=== PATIENT | female | born 1960 | race Caucasian/White ===

== ENCOUNTER 2018-02-04 11:54 | Observation (INO) | payer MEDICARE, OTHER ==
[2018-02-04] MEDS ORDERED: NITROGLYCERIN SL TABS 0.4 MG TAB SUBLINGUAL STA ×3 (12:12)
[2018-02-04] MEDS ORDERED: ASPIRIN 81 MG PO STA (12:12)
--- NOTE | 2018-02-04 12:15 | ED ---
General Adult HPI - General Chief complaint: Chest Pain Stated complaint: Chest pain Time Seen by Provider: 02/04/18 12:06 Source: patient, RN notes reviewed Mode of arrival: wheelchair Limitations: no limitations - History of Present Illness Initial comments: Patient is a pleasant 57-year-old female presenting to the emergency Department with complaints of chest discomfort. Onset was around 3 AM. Discomfort feels like pressure. Patient does have some associated dyspnea. Symptoms seem somewhat improved with being outside. Patient has been exposed to tobacco smoke over the past month. No associated nausea or diaphoresis. No history of similar symptoms previously. Patient did travel to the [facility] one month ago. No symptoms over the past month. No leg pain or leg swelling. No cough or fever. - Related Data Home Medications Medication Instructions Recorded Confirmed Estradiol [Estradiol 0.1 MG Patch] 1 patch TRANSDERM MO 02/04/18 02/04/18 Allergies Allergy/AdvReac Type Severity Reaction Status Date / Time aspirin AdvReac Unknown Verified 02/04/18 12:18 Penicillins AdvReac Rash/Hives Verified 02/04/18 12:18 Review of Systems ROS Statement: Those systems with pertinent positive or pertinent negative responses have been documented in the HPI. ROS Other: All systems not noted in ROS Statement are negative. Constitutional: Denies: fever Eyes: Denies: eye pain ENT: Denies: ear pain Respiratory: Reports: dyspnea. Denies: cough Cardiovascular: Reports: chest pain Endocrine: Denies: fatigue Gastrointestinal: Denies: abdominal pain Genitourinary: Denies: dysuria Musculoskeletal: Denies: back pain Skin: Denies: rash Neurological: Denies: weakness Past Medical History Past Medical History: No Reported History History of Any Multi-Drug Resistant Organisms: None Reported Past Surgical History: Hysterectomy Additional Past Surgical History / Comment(s): breast augmentation Past Psychological History: No Psychological Hx Reported Smoking Status: Never smoker Past Alcohol Use History: Occasional Past Drug Use History: None Reported General Exam Limitations: no limitations General appearance: alert, in no apparent distress Head exam: Present: atraumatic Eye exam: Present: normal appearance, PERRL ENT exam: Present: normal oropharynx Neck exam: Present: normal inspection Respiratory exam: Present: normal lung sounds bilaterally. Absent: chest wall tenderness Cardiovascular Exam: Present: regular rate, normal rhythm Expanded Peripheral pulses: 2+: Radial (R), Radial (L), Posterior Tibialis (R), Posterior Tibialis (L) GI/Abdominal exam: Present: soft. Absent: tenderness Extremities exam: Present: normal inspection. Absent: pedal edema, calf tenderness Neurological exam: Present: alert Psychiatric exam: Present: normal affect, normal mood Skin exam: Present: normal color Course Vital Signs 02/04/18 02/04/18 02/04/18 12:00 12:33 12:34 Temperature 98.3 F Pulse Rate 66 65 Pulse Rate [ 65 [place] ] Respiratory 18 18 Rate Blood Pressure 130/65 121/72 O2 Sat by Pulse 100 97 Oximetry EKG Findings - EKG Comments: EKG Findings:: Normal sinus rhythm 67. MS 168. QRS 78. QT 388. QTC are 9. Left axis. Normal QRS. No acute ST change. Medical Decision Making - Medical Decision Making Patient reevaluated and still having some symptoms however not as bad as previously. Patient states possibly mild improvement with nitroglycerin. Patient updated on results and plan. Case discussed in detail with Dr. ovalle, who will admit for hospital call. - Lab Data Result diagrams: 02/04/18 12:00 02/04/18 12:00 Lab Results 02/04/18 02/04/18 02/04/18 Range/Units 12:00 12:00 12:00 WBC 4.2 (3.8-10.6) k/uL RBC 4.30 (3.80-5.40) m/uL Hgb 13.3 (11.4-16.0) gm/dL Hct 40.7 (34.0-46.0) % MCV 94.6 (80.0-100.0) fL MCH 30.9 (25.0-35.0) pg MCHC 32.7 (31.0-37.0) g/dL RDW 12.5 (11.5-15.5) % Plt Count 168 (150-450) k/uL Neutrophils % 53 % Lymphocytes % 33 % Monocytes % 8 % Eosinophils % 2 % Basophils % 1 % Neutrophils # 2.2 (1.3-7.7) k/uL Lymphocytes # 1.4 (1.0-4.8) k/uL Monocytes # 0.3 (0-1.0) k/uL Eosinophils # 0.1 (0-0.7) k/uL Basophils # 0.0 (0-0.2) k/uL PT (9.0-12.0) sec INR (<1.2) APTT (22.0-30.0) sec D-Dimer (<0.60) mg/L FEU Sodium 142 (137-145) mmol/L Potassium 4.1 (3.5-5.1) mmol/L Chloride 107 (98-107) mmol/L Carbon Dioxide 29 (22-30) mmol/L Anion Gap 6 mmol/L BUN 15 (7-17) mg/dL Creatinine 0.66 (0.52-1.04) mg/dL Est GFR (CKD-EPI)AfAm >90 (>60 ml/min/1.73 sqM) Est GFR (CKD-EPI)NonAf >90 (>60 ml/min/1.73 sqM) Glucose 85 (74-99) mg/dL Calcium 9.5 (8.4-10.2) mg/dL Magnesium 1.8 (1.6-2.3) mg/dL Total Bilirubin 0.3 (0.2-1.3) mg/dL AST 31 (14-36) U/L ALT 21 (9-52) U/L Alkaline Phosphatase 52 (38-126) U/L Total Creatine Kinase 49 (30-135) U/L CK-MB (CK-2) 0.7 (0.0-2.4) ng/mL CK-MB (CK-2) Rel Index 1.4 Troponin I <0.012 (0.000-0.034) ng/mL Total Protein 6.8 (6.3-8.2) g/dL Albumin 3.9 (3.5-5.0) g/dL 02/04/18 Range/Units 12:00 WBC (3.8-10.6) k/uL RBC (3.80-5.40) m/uL Hgb (11.4-16.0) gm/dL Hct (34.0-46.0) % MCV (80.0-100.0) fL MCH (25.0-35.0) pg MCHC (31.0-37.0) g/dL RDW (11.5-15.5) % Plt Count (150-450) k/uL Neutrophils % % Lymphocytes % % Monocytes % % Eosinophils % % Basophils % % Neutrophils # (1.3-7.7) k/uL Lymphocytes # (1.0-4.8) k/uL Monocytes # (0-1.0) k/uL Eosinophils # (0-0.7) k/uL Basophils # (0-0.2) k/uL PT 10.1 (9.0-12.0) sec INR 1.0 (<1.2) APTT 23.6 (22.0-30.0) sec D-Dimer 0.47 (<0.60) mg/L FEU Sodium (137-145) mmol/L Potassium (3.5-5.1) mmol/L Chloride (98-107) mmol/L Carbon Dioxide (22-30) mmol/L Anion Gap mmol/L BUN (7-17) mg/dL Creatinine (0.52-1.04) mg/dL Est GFR (CKD-EPI)AfAm (>60 ml/min/1.73 sqM) Est GFR (CKD-EPI)NonAf (>60 ml/min/1.73 sqM) Glucose (74-99) mg/dL Calcium (8.4-10.2) mg/dL Magnesium (1.6-2.3) mg/dL Total Bilirubin (0.2-1.3) mg/dL AST (14-36) U/L ALT (9-52) U/L Alkaline Phosphatase (38-126) U/L Total Creatine Kinase (30-135) U/L CK-MB (CK-2) (0.0-2.4) ng/mL CK-MB (CK-2) Rel Index Troponin I (0.000-0.034) ng/mL Total Protein (6.3-8.2) g/dL Albumin (3.5-5.0) g/dL - Radiology Data Radiology results: image reviewed (Chest x-ray shows no acute process) Disposition Clinical Impression: Chest pain Disposition: ADMITTED IP TO THIS [facility] Is patient prescribed a controlled substance at d/c from ED?: No Referrals: Nonstaff,Physician [REFERRING] - 1-2 days Decision Time: 13:50
[2018-02-04 12:54] LABS: Basophils % (A) 1 %; Eosinophils # (A) 0.1 k/uL (0-0.7); Eosinophils % (A) 2 %; HCT 40.7 % (34.0-46.0); HGB 13.3 gm/dL (11.4-16.0); Lymphocytes # (A) 1.4 k/uL (1.0-4.8); Lymphocytes % (A) 33 %; MCH 30.9 pg (25.0-35.0); MCHC 32.7 g/dL (31.0-37.0); MCV 94.6 fL (80.0-100.0); Mean Platelet Volume 8.2; Monocytes # (A) 0.3 k/uL (0-1.0); Monocytes % (A) 8 %; Neutrophils # (A) 2.2 k/uL (1.3-7.7); Neutrophils % (A) 53 %; Platelet Count 168 k/uL (150-450); RDW 12.5 % (11.5-15.5); WBC 4.2 k/uL (3.8-10.6)
--- NOTE | 2018-02-04 12:59 | XR ---
EXAMINATION TYPE: XR chest 2V DATE OF EXAM: 02/04/2018 COMPARISON: NONE HISTORY: Shortness of breath TECHNIQUE: Frontal and lateral views of the chest are obtained. FINDINGS: Scattered senescent parenchymal changes noted. Hyperinflation compatible with COPD. No evidence for infiltrate. No evidence for atelectasis. Heart size is stable. Mediastinal structures are stable and grossly unremarkable. No evidence for hilar prominence. Reverse S-shaped scoliotic curvature. IMPRESSION: 1. No evidence for acute pulmonary disease.
[2018-02-04 13:06] LABS: ALT 21 U/L (9-52); AST 31 U/L (14-36); Albumin 3.9 g/dL (3.5-5.0); Alkaline Phosphatase 52 U/L (38-126); Anion Gap 6 mmol/L; Blood Urea Nitrogen 15 mg/dL (7-17); Calcium 9.5 mg/dL (8.4-10.2); Carbon Dioxide 29 mmol/L (22-30); Chloride 107 mmol/L (98-107); Glucose 85 mg/dL (74-99); Magnesium 1.8 mg/dL (1.6-2.3); Potassium 4.1 mmol/L (3.5-5.1); Sodium 142 mmol/L (137-145); Total Bilirubin 0.3 mg/dL (0.2-1.3); Total Protein 6.8 g/dL (6.3-8.2)
[2018-02-04 13:19] LABS: D-Dimer 0.47 mg/L FEU (<0.60); Partial Thromboplastin Time 23.6 sec (22.0-30.0); Prothrombin Time 10.1 sec (9.0-12.0)
[2018-02-04 13:23] LABS: Creatine Kinase 49 U/L (30-135)
[2018-02-04 13:35] LABS: Creatine Kinase MB 0.7 ng/mL (0.0-2.4); Troponin I <0.012 ng/mL (0.000-0.034)
[2018-02-04] MEDS ORDERED: NITROGLYCERIN SL TABS 0.4 MG TAB SUBLINGUAL PRN (13:50)
[2018-02-04] MEDS ORDERED: NITROGLYCERIN OINT 1 INCH/GM PACKET TOPICAL SCH (14:15)
[2018-02-04] MEDS ORDERED: ASPIRIN-ACET-CAFF 250-250-65MG 1 EACH TAB PO STA (16:43)
[2018-02-04] MEDS ORDERED: HYDROcodone/APAP 5-325MG 1 EACH TAB PO PRN (16:57)
[2018-02-04] MEDS ORDERED: NALOXONE 0.4 MG/ML 1 ML VIAL IV PRN (16:57)
[2018-02-04] MEDS ORDERED: ACETAMINOPHEN TAB 325 MG TAB PO PRN (16:57)
[2018-02-04] MEDS ORDERED: ASPIRIN-ACET-CAFF 250-250-65MG 1 EACH TAB PO PRN (16:59)
--- NOTE | 2018-02-04 17:00 | P.HPIM ---
History of Present Illness H&P Date: 02/04/18 Chief Complaint: Chest pain 57-year-old female with no past medical history presents the ED for chest pain. Patient reports waking up at 3 AM with chest pain. Chest pain is left-sided and constant. Pain is 6 out of 10 in severity. Pain is pressure-like in nature. Patient also reports numbness in her left upper extremity. There is no radiation of pain. There is no alleviating factors. There are no aggravating factors. Pain does not increase with movement. Pain does not increase with deep inspiration. Patient was a previous episode of pain when she had a hysterectomy after large amount of blood loss. Patient states that her chest pain was associated with shortness of breath and chest tightness. Patient reports a long family history of coronary artery disease. Her brother and mother had NM in their 30s. She denies any lower extremity edema, nausea, vomiting, fever, cough, palpitations, changes in urination or bowel habits. No changes in appetite or weight. She does complain of headache, bitemporal, related to her migraines. In the ED, CBC and CMP were unremarkable. Troponin was less than 0.012. EKG showed normal sinus rhythm. Chest x-ray was negative. Patient is admitted for chest pain, rule out acute coronary syndrome. Cardiology on consult. Review of Systems All systems: negative Past Medical History Past Medical History: No Reported History Additional Past Medical History / Comment(s): Migraines History of Any Multi-Drug Resistant Organisms: None Reported Past Surgical History: Hysterectomy Additional Past Surgical History / Comment(s): breast augmentation Past Anesthesia/Blood Transfusion Reactions: No Reported Reaction Smoking Status: Never smoker - Past Family History Father Additional Family Medical History / Comment(s): Father from a brain hemorrhage at the age of 50 yrs. He was a smoker and had emphysema. Mother Family Medical History: Coronary Artery Disease (CAD), Diabetes Mellitus, Myocardial Infarction (NM) Additional Family Medical History / Comment(s): Mother is 79yrs old. She has had MIs with the first Mi occurring in her mid to late 30s. Brother(s) Family Medical History: Myocardial Infarction (NM) Additional Family Medical History / Comment(s): Brother is . He had multiple MIs with the first one occuring when he was in his 30s. Sister(s) Family Medical History: Coronary Artery Disease (CAD), Diabetes Mellitus Medications and Allergies Home Medications Medication Instructions Recorded Confirmed Type Estradiol [Estradiol 0.1 MG Patch] 1 patch TRANSDERM MO 02/04/18 02/04/18 History Allergies Allergy/AdvReac Type Severity Reaction Status Date / Time aspirin AdvReac Unknown Verified 02/04/18 12:18 Penicillins AdvReac Rash/Hives Verified 02/04/18 12:18 Physical Exam Vitals: Vital Signs Temp Pulse Pulse Resp BP Pulse Ox 02/04/18 16:00 56 L 15 124/73 98 02/04/18 15:00 64 88 H 138/76 100 02/04/18 14:00 57 L 16 122/71 100 02/04/18 13:00 60 16 109/69 100 02/04/18 12:34 65 02/04/18 12:33 65 18 121/72 97 02/04/18 12:18 99 02/04/18 12:00 98.3 F 66 18 130/65 100 Intake and Output 02/04/18 02/04/18 02/04/18 06:59 14:59 22:59 Other: Weight 72.121 kg General: [non toxic], [no distress], [appears at stated age] Derm: [warm], [dry] Head: [atraumatic], [normocephalic], [symmetric] Eyes: [EOMI], [no lid lag], [anicteric sclera] Mouth: [no lip lesion], [mucus membranes moist] Cardiovascular: [S1S2 reg], [no murmur], [positive DP pulse bilateral], [ tenderness to palpation left sternum.] Lungs: [CTA bilateral], [no rhonchi, no rales] , [no accessory muscle use] Abdominal: [soft], [ nontender to palpation], [no guarding], [no appreciable organomegaly] Ext: [no gross muscle atrophy], [no edema], [no contractures] Neuro: [ CN II-XI grossly intact], [no focal neuro deficits] Psych: [Alert], [oriented], [appropriate affect] Results CBC & Chem 7: 02/04/18 12:00 02/04/18 12:00 Thrombosis Risk Factor Assmnt - Choose All That Apply Any of the Below Risk Factors Present?: Yes Each Factor Represents 1 point: Age 41-60 years Other Risk Factors: No Other congenital or acquired thrombophilia - If yes, enter type in comment: No Thrombosis Risk Factor Assessment Total Risk Factor Score: 1 Thrombosis Risk Factor Assessment Level: Low Risk Assessment and Plan Assessment: Assessment and Plan 1. Chest pain: Appears to be musculoskeletal. Concern for ACS due to extensive family history. Chest x-ray is negative. Troponin is less than 0.12, EKG is normal sinus rhythm. Pain management with Tylenol and [place]. Continue aspirin 325 mg by mouth daily. Telemetry monitoring. I will order a lipid panel. Cardiac diet. Trend 2 more troponins/EKG to rule out ACS. Will order an echocardiogram. We will follow cardiology recommendations. 2. Migraines: Stable. Headache likely induced by Nitrostat. Excedrin 1 tab PO Q6H PRN. 3. DVT/GI Prophylaxis: Low risk for DVT, early mobilization.
[2018-02-04 18:31] LABS: Creatine Kinase 41 U/L (30-135)
[2018-02-04 18:44] LABS: Creatine Kinase MB 0.6 ng/mL (0.0-2.4); Troponin I <0.012 ng/mL (0.000-0.034)
[2018-02-05 00:35] LABS: Creatine Kinase 35 U/L (30-135)
[2018-02-05 00:36] LABS: Cholesterol 157 mg/dL (<200); HDL Cholesterol 48 mg/dL (40-60); LDL Cholesterol,Calculated 86 mg/dL (0-99); Triglycerides 114 mg/dL (<150)
[2018-02-05 00:48] LABS: Creatine Kinase MB 0.5 ng/mL (0.0-2.4); Troponin I <0.012 ng/mL (0.000-0.034)
--- NOTE | 2018-02-05 08:47 | CONS ---
CONSULTATION Mrs Morales is a 57-year-old female who was visiting from [place] and presented with symptoms of chest discomfort. She woke up yesterday. She had this discomfort in the chest and felt dyspneic. She went out and walking and her discomfort was better. Some of the discomfort was worse with pressing on the chest. It lasted for about 12 hours before it resolved completely. The discomfort had no radiation and no other associated symptoms. She is usually active physically. Exercises on a regular basis without any discomfort. She has no history of dyspnea on exertion. No PND. No orthopnea. No peripheral edema. No dizziness, palpitation, or syncope on a regular basis. She has no prior documented history of cardiac disease and no cardiac workup. Her coronary risk factors are negative for hypertension, hyperlipidemia, or diabetes. She is a nonsmoker. There is a family history of coronary disease in her mother, brother and sister at young age. Her medication at home are Estradiol. REVIEW OF SYSTEMS: RESPIRATORY system: No recent wheezing. No cough. No history of documented obstructive lung disease. GI system: No recent GI bleed. No peptic ulcer disease. system: No dysuria or hematuria. Nervous system: No stroke or seizure. PHYSICAL EXAMINATION: A 57-year-old female, alert, oriented, in no apparent distress. Blood pressure 124/70 with a heart in the 60s. HEAD: Normocephalic. Eyes sclerae anicteric. Neck good upstroke. No bruit. No jugular venous distention. Lungs clear to auscultation. HEART: Regular rhythm S1, S2. No S3. No S4. No murmur or rub. ABDOMEN: Soft, nontender. Positive bowel sounds. No megaly. EXTREMITIES: No edema. Intact distal pulses. LAB DATA: BUN and creatinine 15 and 0.6. Potassium 4.1. Troponin less than 0.012. Cholesterol of 157 with an LDL of 86 and a hemoglobin of 13.3. EKG sinus mechanism with a normal axis and intervals. No acute changes. Chest x-ray is unremarkable. IMPRESSION: 1. Chest discomfort atypical for ischemic heart disease probably noncardiac. Appears to have a musculoskeletal pattern to it. 2. Family history of premature coronary disease. RECOMMENDATION: From the cardiac standpoint, I will increase her level activity. An echocardiogram with Doppler will be obtained. If she is stable, I would expect she should be able to be discharged home today and I would recommend to obtain a stress echocardiogram as an outpatient. Thank you for this consult. We will follow with you. MMODL / IJN: [id number] /
[2018-02-05 08:48] VITALS: PULSE 72; RESP 16
[2018-02-05] MEDS ORDERED: ASPIRIN 325 MG TAB PO SCH (09:00)
--- NOTE | 2018-02-05 09:43 | ECHOF ---
Referral Reason:Chest pain MEASUREMENTS -------- HEIGHT: 170.2 cm WEIGHT: 72.1 kg BP: RVIDd: 2.2 cm (< 3.3) IVSd: 0.9 cm (0.6 - 1.1) LVIDd: 4.5 cm (3.9 - 5.3) LVPWd: 1.0 cm (0.6 - 1.1) IVSs: 1.5 cm LVIDs: 2.9 cm LVPWs: 1.2 cm Ao Diam: 3.2 cm (2.0 - 3.7) AV Cusp: 2.5 cm (1.5 - 2.6) LA Diam: 2.5 cm (2.7 - 3.8) MV EXCURSION: 17.614 mm (> 18.000) MV EF SLOPE: 59 mm/s (70 - 150) EPSS: 0.7 cm MV E Prashant: 0.78 m/s MV DecT: 206 ms MV A Prashant: 0.68 m/s MV E/A Ratio: 1.15 RAP: 5.00 mmHg RVSP: 12.60 mmHg FINDINGS -------- Sinus rhythm. This was a technically good study. The left ventricular size is normal. Left ventricular wall thickness is normal. Overall left vent ricular systolic function is normal with, an EF between 55 - 60 %. The right ventricle is normal in size. The left atrium is normal in size. The right atrium is normal in size. Aortic valve is trileaflet and is mildly thickened. The mitral valve leaflets are mildly thickened. There is trace mitral regurgitation. There is min imal mitral valve prolapse. Mild tricuspid regurgitation present. The right ventricular systolic pressure, as measured by Doppl er, is 12.60mmHg. Pulmonic valve appears structurally normal. The aortic root size is normal. The pericardium is normal. CONCLUSIONS -------- 1. Sinus rhythm. 2. This was a technically good study. 3. The left ventricular size is normal. 4. Left ventricular wall thickness is normal. 5. Overall left ventricular systolic function is normal with, an EF between 55 - 60 %. 6. The right ventricle is normal in size. 7. The left atrium is normal in size. 8. The right atrium is normal in size. 9. Aortic valve is trileaflet and is mildly thickened. 10. The mitral valve leaflets are mildly thickened. 11. There is trace mitral regurgitation. 12. There is minimal mitral valve prolapse. 13. Mild tricuspid regurgitation present. 14. The right ventricular systolic pressure, as measured by Doppler, is 12.60mmHg. 15. Pulmonic valve appears structurally normal. 16. The aortic root size is normal. 17. The pericardium is normal. ENVIRONMENTAL [employer]CI[employer]ANNER: Marisela Teixeira RDCS
--- NOTE | 2018-02-05 11:21 | P.DS ---
Providers Date of admission: 02/04/18 13:50 Expected date of discharge: 02/05/18 Attending physician: Brad Sorenson MD Consults: 02/04/18 13:50 Consult Physician Urgent Consulting Provider: Ky Kenyon Consult Reason/Comments: cp Do you want consulting provider notified?: Yes Primary care physician: Stated None - Discharge Diagnosis(es) (1) Migraine Current Visit: Yes Status: Acute (2) Chest pain Current Visit: Yes Status: Acute Hospital Course: 57-year-old female with no past medical history presents the ED for chest pain. Patient reports waking up at 3 AM with chest pain. Chest pain is left-sided and constant. Pain is 6 out of 10 in severity. Pain is pressure-like in nature. Patient also reports numbness in her left upper extremity. There is no radiation of pain. There is no alleviating factors. There are no aggravating factors. Pain does not increase with movement. Pain does not increase with deep inspiration. Patient was a previous episode of pain when she had a hysterectomy after large amount of blood loss. Patient states that her chest pain was associated with shortness of breath and chest tightness. Patient reports a long family history of coronary artery disease. Her brother and mother had NV in their 30s. She denies any lower extremity edema, nausea, vomiting, fever, cough, palpitations, changes in urination or bowel habits. No changes in appetite or weight. She does complain of headache, bitemporal, related to her migraines. In the ED, CBC and CMP were unremarkable. Troponin was less than 0.012. EKG showed normal sinus rhythm. Chest x-ray was negative. With regard to her chest pain, this is thought to be secondary to musculoskeletal pain. There was a concern for ACS due to her extensive family history. Troponin was less than 0.0123 with EKG showing normal sinus rhythm. Echocardiogram was ordered and showed normal ejection fraction of 55-60% with no wall motion abnormalities. She was evaluated for cardiology, decision made to obtain a stress echocardiogram as an outpatient. Pertinent Studies: Echocardiogram Patient Condition at Discharge: Stable Plan - Discharge Summary Discharge Rx Participant: No New Discharge Prescriptions: New [id number] [Excedrin] 1 each PO Q6HR PRN tab PRN Reason: Headache Continue Estradiol [Estradiol 0.1 MG Patch] 1 patch TRANSDERM MO Discharge Medication List Estradiol [Estradiol 0.1 MG Patch] 1 patch TRANSDERM MO 02/04/18 [History] [id number] [id number] [Excedrin] 1 each PO Q6HR PRN tab 02/05/18 [Rx] Follow up Appointment(s)/Referral(s): Bentley Woody MD [STAFF PHYSICIAN] - 4 Weeks Nonstaff,Physician [REFERRING] - 1-2 days Activity/Diet/Wound Care/Special Instructions: Diet: HEART healthy Please follow-up with your primary care provider within 1-2 days of discharge. Please follow-up with your water commissioner Dr. Woody on with the appointment given to you. Note to PCP: Please obtain a stress echocardiogram. Please take all medications as advised. Please come to the ED or call 911 for worsening chest pain, shortness of breath , palpitations. Discharge Disposition: HOME SELF-CARE
[2018-02-05 12:14] VITALS: BP 103/66; TEMP 98
[2018-02-07] MEDS ORDERED: ESTRADIOL TRANSDERM SCH (09:00)
== END 2018-02-05 12:59 | disposition home or self-care (01) ==
LOC: EC 11:54 → 3SCARD 13:50 → 1SOBS 18:05
PROVIDERS: ADMIT Family Medicine; ATTEND Family Medicine
DX: R07.89 Other chest pain (principal); G43.909 Migraine, unspecified, not intractable, without status migrainosus; F41.9 Anxiety disorder, unspecified; Z77.22 Contact with and (suspected) exposure to environmental tobacco smoke (acute) (chronic); Z79.890 Hormone replacement therapy; Z79.899 Other long term (current) drug therapy; Z88.6 Allergy status to analgesic agent; Z88.0 Allergy status to penicillin; Z90.710 Acquired absence of both cervix and uterus; Z98.82 Breast implant status; Z82.49 Family history of ischemic heart disease and other diseases of the circulatory system; Z83.3 Family history of diabetes mellitus; Z82.5 Family history of asthma and other chronic lower respiratory diseases
CPT/HCPCS: 99285; 36415; 93005; 93306; 85379; 80061; 80053; 82550 ×2; 82553 ×2; 83735; 84484 ×2; 85025; 85610; 85730; 71046; G0378 ×3

== ENCOUNTER 2018-06-01 23:18 | Emergency (ER) | payer MEDICARE, OTHER ==
[2018-06-01 23:25] VITALS: TEMP 97.9
[2018-06-02] MEDS ORDERED: Acetaminophen-Codeine 300-30mg TAB PO STA (00:21)
--- NOTE | 2018-06-02 01:51 | XR ---
EXAM: XR Left Hand Complete, 3 or More Views CLINICAL HISTORY: injury TECHNIQUE: Frontal, lateral and oblique views of the left hand. COMPARISON: No relevant prior studies available. FINDINGS: Bones/joints: Acute nondisplaced fracture of the fifth metacarpal. Soft tissues: Soft tissue edema overlying the fifth metacarpal. No radiopaque foreign body. IMPRESSION: Acute fracture of the fifth metacarpal with overlying soft tissue edema.
--- NOTE | 2018-06-02 02:07 | ED ---
Upper Extremity HPI - General Chief Complaint: Extremity Injury, Upper Stated Complaint: L Hand Injury Time Seen by Provider: 06/01/18 23:43 Source: patient Mode of arrival: ambulatory Limitations: no limitations - History of Present Illness Initial Comments: This patient's 57-year-old woman who complains of left hand injury. She states that she had pushed a door which "snapped back" striking her left hand. She states felt a pop believes that something may have broken. She denies weakness or numbness of the hand or fingers. No previous surgery or injury to that hand. MD Complaint: Injury to:: left, hand -: hour(s) Other Extremity Injury: Hand: Left Handedness: right Place: home Improves With: immobilization Worsens With: movement of extremity Context: direct blow Associated Symptoms: heard/felt popping sensat - Related Data Home Medications Medication Instructions Recorded Confirmed Multivitamins, Thera [Multivitamin 1 tab PO DAILY 06/01/18 06/01/18 (formulary)] Previous Rx's Medication Instructions Recorded Acetaminophen-Codeine 300-30mg 1 tab PO Q4H PRN #20 tablet 06/02/18 [Tylenol w/codeine #3] Ibuprofen [Motrin] 600 mg PO Q8HR PRN #20 tab 06/02/18 Allergies Allergy/AdvReac Type Severity Reaction Status Date / Time aspirin AdvReac Unknown Verified 06/01/18 23:36 Penicillins AdvReac Rash/Hives Verified 06/01/18 23:36 Review of Systems ROS Statement: Those systems with pertinent positive or pertinent negative responses have been documented in the HPI. ROS Other: All systems not noted in ROS Statement are negative. Musculoskeletal: Reports: as per HPI, joint swelling, arthralgia Skin: Denies: lesions Neurological: Denies: weakness, numbness, paresthesias Hematological/Lymphatic: Denies: easy bleeding Past Medical History Past Medical History: No Reported History Additional Past Medical History / Comment(s): Migraines History of Any Multi-Drug Resistant Organisms: None Reported Past Surgical History: Hysterectomy Additional Past Surgical History / Comment(s): breast augmentation Past Anesthesia/Blood Transfusion Reactions: No Reported Reaction Past Psychological History: No Psychological Hx Reported Smoking Status: Never smoker Past Alcohol Use History: Occasional Past Drug Use History: None Reported - Past Family History Father Additional Family Medical History / Comment(s): Father from a brain hemorrhage at the age of 50 yrs. He was a smoker and had emphysema. Mother Family Medical History: Coronary Artery Disease (CAD), Diabetes Mellitus, Myocardial Infarction (DC) Additional Family Medical History / Comment(s): Mother is 79yrs old. She has had MIs with the first Mi occurring in her mid to late 30s. Brother(s) Family Medical History: Myocardial Infarction (DC) Additional Family Medical History / Comment(s): Brother is . He had multiple MIs with the first one occuring when he was in his 30s. Sister(s) Family Medical History: Coronary Artery Disease (CAD), Diabetes Mellitus General Exam Limitations: no limitations General appearance: alert, in no apparent distress Cardiovascular Exam: Present: other (. Pulses normal in strength. There is good capillary refill throughout the hand.) Extremities exam: Present: tenderness Left Elbow exam: Present: normal inspection, full ROM. Absent: tenderness Forearm Wrist exam: Present: normal inspection, full ROM. Absent: tenderness Hand Wrist exam: Present: tenderness, swelling, ecchymosis, other (There is ecchymosis and swelling over the fourth and fifth metacarpals of the left hand. No obvious deformity but there is tenderness. Vascular and sensory motor function normal) Neurosensory exam: Present: radial nerve intact, ulnar nerve intact, median nerve intact Vascular: Present: normal capillary refill. Absent: vascular compromise Neurological exam: Absent: motor sensory deficit Skin exam: Present: warm, dry, intact, normal color. Absent: rash Course Vital Signs 06/01/18 06/02/18 23:22 03:25 Temperature 97.9 F Pulse Rate 75 80 Respiratory 18 16 Rate Blood Pressure 111/66 117/61 O2 Sat by Pulse 99 Oximetry Medical Decision Making - Medical Decision Making Patient's 57-year-old woman with fifth metacarpal fracture. There is decent anatomical alignment. The patient's did request that a cast be placed immediately tonight. I call orthopedic surgery to discuss this and they feel that that is an appropriate treatment given risk of increased swelling leading to Otherwise of the circulation. Discussed this with patient and did provide splint. Follow-up instructions, as well as return parameters. Disposition Clinical Impression: Metacarpal bone fracture Disposition: HOME SELF-CARE Condition: Good Instructions (If sedation given, give patient instructions): Hand Fracture (ED) Prescriptions: Acetaminophen-Codeine 300-30mg [Tylenol w/codeine #3] 1 tab PO Q4H PRN #20 tablet PRN Reason: Pain Ibuprofen [Motrin] 600 mg PO Q8HR PRN #20 tab PRN Reason: Pain Is patient prescribed a controlled substance at d/c from ED?: Yes When asked, does pt state using other controlled substances?: No If prescribed controlled substance>3 days was MAPS reviewed?: Prescribed <3 Days If opioid is for acute pain is fill amount 7 days or less?: Yes If Rx opioid, was Start Talking consent form obtained?: Yes Referrals: None,Stated [Primary Care Provider] - 1-2 days
[2018-06-02 03:27] VITALS: BP 117/61; PULSE 80; RESP 16
== END 2018-06-02 03:25 | disposition home or self-care (01) ==
LOC: EC 23:18
DX: S62.307A Unspecified fracture of fifth metacarpal bone, left hand, initial encounter for closed fracture (principal); Z88.0 Allergy status to penicillin; Z88.6 Allergy status to analgesic agent; W22.8XXA Striking against or struck by other objects, initial encounter
CPT/HCPCS: 99283